=== PATIENT | female | born 1990 | race Caucasian/White ===

== ENCOUNTER → 2023-11-22 08:30 | Outpatient (REF) | payer BC, SELFPAY ==
[2023-11-22 10:26] LABS: Beta HCG Quantitative 6.21 mIU/ml
== END ==
LOC: REG 08:30
PROVIDERS: ATTENDING PHYSICIAN Obstetrics & Gynecology
DX: O00.90 Unspecified ectopic pregnancy without intrauterine pregnancy (principal)
CPT/HCPCS: 36415; 84702

== ENCOUNTER → 2023-11-29 07:38 | Outpatient (REF) | payer BC, SELFPAY ==
[2023-11-29 08:34] LABS: Beta HCG Quantitative < 2.39 mIU/ml
== END ==
LOC: REG 07:38
PROVIDERS: ATTENDING PHYSICIAN Obstetrics & Gynecology
DX: O00.91 Unspecified ectopic pregnancy with intrauterine pregnancy (principal)
CPT/HCPCS: 36415; 84702

== ENCOUNTER → 2024-02-04 08:57 | Outpatient (REF) | payer BC, SELFPAY | LOC: WDC 08:57 | PROVIDERS: ATTENDING PHYSICIAN Advanced Practice Midwife; FAMILY PHYSICIAN Family Medicine | DX: N64.4 Mastodynia (principal); N63.20 Unspecified lump in the left breast, unspecified quadrant | CPT/HCPCS: 76642; 77062; 77066 ==

== ENCOUNTER → 2025-03-25 08:52 | Outpatient (REF) | payer BC, SELFPAY | LOC: WDC 08:52 | PROVIDERS: ATTENDING PHYSICIAN Nurse Practitioner Family; FAMILY PHYSICIAN Family Medicine; REFERRING PHYSICIAN Obstetrics & Gynecology | DX: N63.20 Unspecified lump in the left breast, unspecified quadrant (principal) | CPT/HCPCS: 76642; 77062; 77066 ==